=== PATIENT | female | born 1980 | race Caucasian/White ===

== ENCOUNTER 2016-11-15 09:17 | Emergency (ER) | payer OTHER ==
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
[2016-11-15 09:29] VITALS: BP 143/92; PULSE 68; RESP 16; TEMP 97.7; O2SAT 98
== END 2016-11-15 09:40 | disposition home or self-care (01) ==
DX: F20.89 Other schizophrenia (principal); V89.2XXA Person injured in unspecified motor-vehicle accident, traffic, initial encounter; Y92.410 Unspecified street and highway as the place of occurrence of the external cause

== ENCOUNTER 2016-11-15 12:53 | Emergency (ER) | payer OTHER ==
[2016-11-15 13:09] VITALS: TEMP 97.7; O2SAT 100
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
[2016-11-15 13:53] VITALS: BP 162/88; PULSE 70; RESP 18
== END 2016-11-15 13:53 | disposition home or self-care (01) ==
DX: F20.9 Schizophrenia, unspecified (principal); Z04.1 Encounter for examination and observation following transport accident; V89.2XXA Person injured in unspecified motor-vehicle accident, traffic, initial encounter